=== PATIENT | male | born 1975 | race African-American/Black ===

== ENCOUNTER 2020-03-13 17:00 | Inpatient (IN) ==
[2020-03-13] MEDS ORDERED: NS 1,000 ML IV ONE ×3 (17:09→17:34)
[2020-03-13] MEDS ORDERED: HUMULIN R IV ONE ×3 (17:10→23:39)
--- NOTE | 2020-03-13 17:15 | PROVIDER DOCUMENTATION ---
HPI-General Adult - General Stated Complaint: HIGH BLOOD SUGAR,DIABETIC Time Seen by Provider: 03/13/20 17:09 Source: patient Allergies/Adverse Reactions: Patient Allergies Allergy/AdvReac Type Severity Reaction Status Date / Time No Known Allergies Allergy Verified 08/11/13 06:48 Home Medications: Home Medication List Medication Instructions Recorded Confirmed Last Taken Type Clindamycin [Cleocin] 150 mg PO 4XDAY #40 capsule 08/11/13 Unknown Rx Sulfamethoxazole/Tmp D.s. [Septra 1 each PO BID #20 tablet 08/11/13 Unknown Rx Ds] Progress - PLAN OF CARE/RESULTS Progress/Plan/Lab Results: Orders Category Date Time Status FSBS/Accucheck Result NOW Care 03/13/20 17:10 Ordered CBC WITH ELECTRONIC DIFF [HEME] Stat Lab 03/13/20 17:09 Ordered CMP [COMPREHENSIVE METABOLIC PANEL] [CHEM] Stat Lab 03/13/20 17:09 Uncollected Insulin Human Regular [Humulin R] Med 03/13/20 17:10 Once 15 unit IV NOW ONE Ns 1000 ml IV Bolus X1 Med 03/13/20 17:09 Ordered 0.9% Sodium Chloride Inj [Ns] 1,000 ml IV 999 mls/hr Departure - Departure Referrals and Follow-Ups: Perla Lutz MD [Primary Care Provider] -
--- NOTE | 2020-03-13 17:36 | PROVIDER DOCUMENTATION ---
This chart was entered by Zoe Armando Scribe, acting as scribe for Douglas Lancaster MD. HPI-General Adult - General Chief Complaint: DKA ALERT Stated Complaint: HIGH BLOOD SUGAR,DIABETIC Time Seen by Provider: 03/13/20 17:09 Source: patient Allergies/Adverse Reactions: Patient Allergies Allergy/AdvReac Type Severity Reaction Status Date / Time No Known Allergies Allergy Verified 08/11/13 06:48 Home Medications: Home Medication List Medication Instructions Recorded Confirmed Last Taken Type Clindamycin [Cleocin] 150 mg PO 4XDAY #40 capsule 08/11/13 Unknown Rx Sulfamethoxazole/Tmp D.s. [Septra 1 each PO BID #20 tablet 08/11/13 Unknown Rx Ds] - History of Present Illness -Gen Adult Nature of Presenting Problems: 44yobm presents to Ed by EMS cc elevated blood sugar, increased thirst, increased urination, fatigue for about 4 days. Pt reports he was seen by PCP today for symptoms and advised to come to ED b/c blood sugar was over 1000. He has no prior hx of DM but his mom does. He denies F/cough/recent travel or known exposure to COVID-19. His mucous membranes are VERY dry and he smells of ketones upon exam. Onset/Duration: reports: 4 days ago Timing: reports: still present Context/Activities at Onset: reports: light activity Modifying Factors: improves with: nothing Associated Symptoms: reports: fatigue Similar Symptoms Previously?: Yes Recently seen or treated by another doctor?: Yes (saw PCP today) - Diabetes Related Context Context: reports: high blood sugar Review of Systems - Adult - REVIEW OF SYSTEMS - ADULT Constitutional: reports: see HPIreagan. denies: chills, fever Eyes: reports: no symptoms reported Ears, Nose, Mouth & Throat: reports: no symptoms reported Cardiovascular: reports: no symptoms reported Respiratory: reports: see HPI. denies: cough, shortness of breath Gastrointestinal: reports: no symptoms reported Genitourinary: reports: see HPI, frequency. denies: dysuria, flank pain, h ematuria Musculoskeletal: reports: no symptoms reported Integumentary: reports: no symptoms reported Neurological: reports: no symptoms reported Psychiatric: reports: no symptoms reported Endocrine: reports: see HPI, increased thirst, polyuria Hematologic/Lymphatic: reports: no symptoms reported Allergic/Immunologic: reports: no symptoms reported All Other Systems: Reviewed and Negative Past History - Adult - PAST MEDICAL HISTORY-ADULT Review of Records: reports: Nursing Assessment Review, Medications Reviewed, Social history reviewed & non-contributory. Major Childhood Illnesses: reports: denies history Cardiovascular: reports: denies history Respiratory: reports: denies history Gastrointestinal: reports: denies history Obstetrical/Gynecological: reports: denies history Genitourinary: reports: denies history Musculoskeletal: reports: denies history Neurological: reports: denies history Endocrine/Immune: reports: denies history Other Conditions: reports: denies history - IMMUNIZATION STATUS Childhood Immunizations: See Nurse Assessment Flu Vaccine: See Nurse Assessment - FAMILY HISTORY Family History: reviewed, not pertinent - SOCIAL HISTORY Smoking: denies Physical Exam-General - PHYSICAL EXAM-ADULT Initial Vital Signs Reviewed: Yes - CONSTITUTIONAL General Appearance: alert, no apparent distress. negative: anxious, combative - EYES Eyes: PERRL/EOMI, pink conjunctivae. negative: photophobia - HEAD, EARS, NOSE, MOUTH & THROAT HENMT: normocephalic/atraumatic. negative: moist mucous membranes (very dry with fruity smell), angioedema - NECK Neck: non-tender, full range of motion, supple, normal inspection. negative: C- spine tenderness - RESPIRATORY Respiratory: chest non-tender, lungs clear, normal breath sounds. negative: rhonchi, wheezing - CARDIOVASCULAR Cardiovascular: normal peripheral pulses, regular rate, rhythm. negative: br adycardia, tachycardia - GASTROINTESTINAL (ABDOMEN) Abdominal Exam: normal bowel sounds, non tender, soft. negative: guarding, rebound - LYMPHATIC Lymphatic: no adenopathy. negative: enlargement - MUSCULOSKELETAL Back Exam: normal inspection, no CVA tenderness, no vertebral tenderness Extremity: normal range of motion, non-tender, normal gait, normal inspection, no pedal edema, no calf tenderness, normal capillary refill. negative: deformity, swelling - SKIN Integumentary: normal color, normal turgor, warm/dry. 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 negative: anxious Progress - PLAN OF CARE/RESULTS Progress/Plan/Lab Results: Vital Signs - 8 hr 03/13/20 17:16 Temperature 97.9 F Pulse Rate 93 H Respiratory Rate 23 Blood Pressure 95/55 O2 Sat by Pulse Oximetry 98 Laboratory Results - last 24 hr 03/13/20 17:04 POC Glucose 500 H Orders Category Date Time Status Cardiac Monitoring NOW Care 03/13/20 17:21 Active FSBS/Accucheck Result NOW Care 03/13/20 17:10 Active IV Insertion NOW Care 03/13/20 17:21 Active NEWS Score >or=5:Order NEWS Bundle S.O. NOW Care 03/13/20 17:21 Active Notify Provider of NEWS Score NOW Care 03/13/20 17:21 Active CHEST-1 VIEW [RAD] Stat Exams 03/13/20 17:21 Ordered ABG [RESP] Routine Lab 03/13/20 17:22 Ordered BLOOD CULTURE [BLDCUL] Stat Lab 03/13/20 17:21 Uncollected BLOOD CULTURE [BLDCUL] Stat Lab 03/13/20 17:22 Uncollected CBC WITH ELECTRONIC DIFF [HEME] Stat Lab 03/13/20 17:09 Ordered CK PROFILE [SP CHEM] Stat Lab 03/13/20 17:21 Uncollected CMP [COMPREHENSIVE METABOLIC PANEL] [CHEM] Stat Lab 03/13/20 17:09 Uncollected LACTATE, PLASMA [CHEM] Q3H Lab 03/13/20 17:30 Uncollected LACTATE, PLASMA [CHEM] Q3H Lab 03/13/20 20:30 Uncollected LACTATE, PLASMA [CHEM] Q3H Lab 03/13/20 23:30 Uncollected PROTIME WITH INR [COAG] Stat Lab 03/13/20 17:21 Uncollected PTT [COAG] Stat Lab 03/13/20 17:21 Uncollected TROPONIN T HIGH SENSITIVITY Stat Lab 03/13/20 17:21 Uncollected URINALYSIS W/POSS RFLX CULT [URINALYSIS] Stat Lab 03/13/20 17:21 Uncollected 0.9% Sodium Chloride Inj [Ns] 1,000 ml Med 03/13/20 17:09 Active IV 999 mls/hr Insulin Human Regular [Humulin R] Med 03/13/20 17:21 Discontinued 12 unit IV NOW ONE Insulin Human Regular [Humulin R] Med 03/13/20 17:10 Discontinued 15 unit IV NOW ONE O2 Per Protocol Stat Oth 03/13/20 17:21 Active Result Diagrams: 03/13/20 17:24 04/20/20 17:24 - XRAY 1 XRAY: Bilateral XRAY Study: Chest Impression: See EMR Report (IMPRESSION: No evidence of acute disease. Electronically signed by Praveen Bateman 03/13/2020 5:45 PM) XRAY Interpretation: NAD - CONSULTS/PCP/HOSPITALIST Notification #1 *Consult/PCP/Hospitalist*: Dr. Echeverria Time Discussed: 19:00 Consult Disposition: Admit Departure - Departure Date of Disposition Decision: 03/13/20 Time of Disposition Decision: 19:06 DIAGNOSIS: New onset type 2 diabetes mellitus, BONNY (acute kidney injury) DKA (diabetic ketoacidosis) Qualifiers: Diabetes mellitus type: type 2 Diabetes mellitus complication detail: without coma Qualified Code(s): E11.10 - Type 2 diabetes mellitus with ketoacidosis without coma Disposition: ADMITTED INPATIENT 09 Certified Medical Emergency: Emergent Condition: Stable Referrals and Follow-Ups: Perla Lutz MD [Primary Care Provider] - - Critical Care Note This patient required my direct & personal management of CC.: Yes Total Time (mins): 95 Critical Care Statement: This patient required my direct personal management to treat or rule out processes, the absence of which, could potentiallly result in sudden, clinically significant life or limb threatening deterioration. Attestation - Physician/ VICENTE Attestation Patient care was provided by Advanced Practice Provider:: No The physician spent face to face time with patient:: Yes Advanced Practice Provider documentation review:: Supervising physician onsite and consulted in the evaluation and care of this patient. The physician did have a face to face encounter with the patient. This chart was documented by the indicated scribe, (Zoe Armando Scribe) and accurately reflects the services I performed and decisions made by me, Douglas Lancaster MD, as attested by the provider's signature.
--- NOTE | 2020-03-13 17:48 | Diag Imaging Result Doc PS360 ---
EXAM: CHEST-1 VIEW 03/13/2020 HISTORY: DKA TECHNIQUE: AP portable upright at 0535 COMMENT: There is no evidence of acute cardiac or pulmonary disease. The inspiration is suboptimal. There are no previous studies. IMPRESSION: No evidence of acute disease. Electronically signed by Praveen Bateman 03/13/2020 5:45 PM
[2020-03-13 17:54] LABS: ALLEN TEST YES; BE -15.7 mmoll (-3.0-3.0); BLOOD TYPE ARTERIAL; HCO3-(ACT) 12.6 mmoll (20.0-26.0); METHB 1.6 % (0.0-1.5); O2(CT) 17.7 mL/dL (15.0-23.0); O2HB 95.6 % (95.0-99.0); PCO2(98.6) 24 mmHg (35-45); PO2(98.6) 94 mmHg (60-100); SAMPLE BLOOD; THB 13.1 g/dL (11.5-17.4); pH(98.6) 7.23 (7.35-7.45)
[2020-03-13 18:02] LABS: INR 1.21; PROTIME 15.5 Seconds (11.0-16.0)
[2020-03-13 18:03] LABS: PTT 21.8 Seconds (22.3-41.8)
[2020-03-13 18:26] LABS: AGAP 33; ALB/GLOB RATIO 1.6; ALBUMIN 4.2 g/dL (3.5-5.0); ALKALINE PHOSPHATASE 125 U/L (32-122); BUN 79 mg/dL (8-22); CALCIUM 8.6 mg/dL (8.8-10.2); CHLORIDE 73 mmol/L (98-107); CK PROFILE 182 U/L (24-204); COSMO 323; CREATININE 2.8 mg/dL (0.7-1.2); ESTIMATED GFR 30; GLUCOSE > 1500 mg/dL (70-104); GOT 9 U/L (10-34); GPT 15 U/L (10-44); POTASSIUM 5.7 mmol/L (3.5-5.1); TCO2 12 mmol/L (25-35); TOTAL BILIRUBIN 0.29 mg/dL (0.20-1.00); TOTAL PROTEIN 6.9 g/dL (6.3-8.3)
[2020-03-13 18:27] LABS: SODIUM 117 mmol/L (136-145)
[2020-03-13] MEDS ORDERED: ROCEPHIN 1 GM in NS 50 ML IV ONE (18:45)
[2020-03-13] MEDS ORDERED: SODIUM PHOSPHATE 30 MMOL in D5W 250 ML IV PRN (18:46)
[2020-03-13] MEDS ORDERED: POTASSIUM CHLORIDE 20 MEQ/SWI 20 MEQ/100 ML IVPB IV PRN ×3 (18:46→23:39)
[2020-03-13] MEDS ORDERED: D50W SYRINGE IV PRN ×3 (18:46→23:39)
[2020-03-13] MEDS ORDERED: POTASSIUM CHLORIDE 10% LIQUID PO PRN (18:46)
[2020-03-13] MEDS ORDERED: POTASSIUM CHLORIDE 20% LIQUID PO PRN ×2 (18:46→23:39)
[2020-03-13] MEDS ORDERED: MAGNESIUM SULFATE 2 GM/S.W.I. 2 GM/50 ML IVPB IV PRN (18:46)
[2020-03-13 18:51] LABS: BASO# 0.01 X1000 (0.0-0.2); BASO% 0.1 % (0.0-0.8); HEMATOCRIT 42.2 % (42.0-52.0); HEMOGLOBIN 12.6 g/dL (14.0-18.0); IMM GRAN# 0.02 X1000 (0.0-0.04); IMM GRAN% 0.2 % (0.0-0.5); LYMPH# 0.69 X1000 (1.2-3.4); MCH 26.9 PG (27-31); MCHC 29.9 g/dL (33-37); MONO# 0.34 X1000 (0.11-0.59); MONO% 3.4 % (1.7-9.3); NEUT# 8.83 X1000 (1.4-6.5); NEUT% 89.3 % (42.2-75.2); PLT 160 X1000 (130-400); RBC 4.69 XMIL (4.7-6.1); RDW 14.3 % (11.5-14.5); WBC 9.89 X1000 (4.8-10.8)
[2020-03-13 18:58] LABS: URINE SOURCE CLEAN CATCH
[2020-03-13] MEDS ORDERED: HUMULIN R 100 UNIT in NS 100 ML IV SCH (19:00)
[2020-03-13 19:18] LABS: BILIRUBIN URINE NEGATIVE (NEGATIVE); BLOOD URINE NEGATIVE (NEGATIVE); COLOR STRAW; GLUCOSE URINE >1000 mg/dL (NEGATIVE); KETONE URINE 20 mg/dL (NEGATIVE); LEUKOCYTES URINE NEGATIVE (NEGATIVE); NITRITE URINE NEGATIVE (NEGATIVE); PH URINE 5.5; PROTEIN URINE NEGATIVE (NEGATIVE); SP GRAVITY URINE 1.025; TURBIDITY URINE CLEAR (CLEAR); UROBILINOGEN URINE NORMAL (NORMAL)
[2020-03-13 19:19] LABS: UR EPITHELIAL CELLS <10 /HPF (<10); URINE BACTERIA NEGATIVE /HPF; URINE RBC <10 /HPF (<10); URINE WBC <10 /HPF (<10)
[2020-03-13 19:57] LABS: UR AMPHETAMINES QUAL NONE DETECTED (NONE DETECT); UR BARBITUATES QUAL NONE DETECTED (NONE DETECT); UR BENZODIAZEPIN QUAL NONE DETECTED (NONE DETECT); UR CANNABINOIDS QUAL NONE DETECTED (NONE DETECT); UR COCAINE QUAL NONE DETECTED (NONE DETECT); UR METHADONE QUAL NONE DETECTED (NONE DETECT); UR OPIATES QUAL NONE DETECTED (NONE DETECT); UR OXYCODONE QUAL NONE DETECTED (NONE DETECT); UR PCP QUAL NONE DETECTED (NONE DETECT)
[2020-03-13 21:03] LABS: MAGNESIUM 4.5 mg/dL (1.5-2.7); PHOSPHORUS 6.8 mg/dL (2.7-4.5); POTASSIUM 5.3 mmol/L (3.5-5.1)
[2020-03-13 21:04] LABS: ACETONE SERUM MODERATE (NEGATIVE)
[2020-03-13 21:05] LABS: CK PROFILE 212 U/L (24-204)
[2020-03-13 21:19] LABS: CK INDEX 1.2 (0.0-2.5); CK-MB 2.56 ng/mL (0.0-5.0)
--- NOTE | 2020-03-13 21:56 | HISTORY AND PHYSICAL ---
PRIMARY CARE PHYSICIAN: Dr. Pantoja. CHIEF COMPLAINT: Nausea, vomiting for 2 days. HISTORY OF PRESENTING ILLNESS: A 44-year-old male with a history of hypertension who presented to emergency department with 2 days history of having persistent nausea, vomiting. The patient states that he was not able to keep anything down and his symptoms were worsening. The patient subsequently had come to the emergency department and at the ED, he was evaluated. He had laboratories drawn which did show he had markedly elevated blood glucose greater than 1500. He was also acidotic and symptoms were consistent with DKA. Subsequently, he will require admission for further management. During his initial treatment, he was started on insulin drip and he will require admission to [facility] for further treatment. At the time of my examination, he had denied any headache, fever, chills, chest pain, shortness of breath or weight changes, but complained of nausea, vomiting and not feeling well. PAST MEDICAL HISTORY: Includes hypertension. PAST SURGICAL HISTORY: None. ALLERGIES: No known drug allergies. CURRENT MEDICATIONS: Amlodipine 10 mg p.o. daily, clonidine 0.1 mg p.o. nightly, metoprolol 100 mg p.o. daily. SOCIAL HISTORY: He is a former smoker. No history of alcohol or illicit drug use. FAMILY HISTORY: No history of coronary disease. REVIEW OF SYSTEMS: Fourteen point review of systems is as in HPI. Other systems negative. PHYSICAL EXAMINATION: GENERAL: Cooperative, friendly male. He is resting more comfortably now. VITAL SIGNS: Temperature 97.9 degrees, pulse 93, respirations 23, blood pressure 95/55. HEENT: Atraumatic, normocephalic. Extraocular movements intact. PERRLA. NECK: No masses. CHEST: Clear to auscultation. CARDIOVASCULAR: Regular rate and rhythm. ABDOMEN: Soft. Positive bowel sounds. EXTREMITIES: No edema. NEUROLOGIC: He is awake, alert, oriented x3. : No bladder distention. SKIN: Has a poor turgor. LABORATORIES AND STUDIES: WBC 9.89, hemoglobin 12.6, hematocrit 42.2, platelets 160,000, pH is 7.23. Sodium 117, potassium 5.7, chloride 73, CO2 is 12, BUN 79, creatinine is 2.8, glucose is greater than 1500. Has moderate acetone noted. ASSESSMENT: This is a 44-year-old male with a history of hypertension, had presented to emergency department with several days history of having worsening nausea, vomiting. He was seen in the emergency department and laboratories drawn which were consistent with diabetic ketoacidosis. Subsequently, he will require admission for further management. 1. Diabetic ketoacidosis. 2. Acute kidney injury. 3. Electrolyte abnormalities. 4. Hypertension. PLAN: 1. We will admit patient to [facility]. 2. Continue patient on insulin drip per DKA protocol. 3. Continue with IV fluids and monitor renal function. 4. We will correct his electrolytes. 5. Monitor blood pressure closely. Resume antihypertensive agent. 6. We will put patient on DVT prophylaxis with SCD. 7. We will continue to follow and reassess, make further recommendation based on patient's clinical course. cc: Elias Echeverria MD
[2020-03-13] MEDS ORDERED: POTASSIUM CHLORIDE 40 MEQ/SWI 40 MEQ/100 ML IVPB IV PRN (23:39)
[2020-03-13] MEDS ORDERED: D5 NS 1,000 ML IV PRN (23:39)
[2020-03-13] MEDS ORDERED: ZOFRAN IV PRN (23:39)
[2020-03-14] MEDS: NS 1,000 ML IV SCH ×2 (00:22→08:01)
[2020-03-14 00:26] LABS: HEMATOCRIT 36.6 % (42.0-52.0); HEMOGLOBIN 12.8 g/dL (14.0-18.0); MCH 27.3 PG (27-31); PLT 159 X1000 (130-400); RBC 4.69 XMIL (4.7-6.1); RDW 12.9 % (11.5-14.5); WBC 10.17 X1000 (4.8-10.8)
[2020-03-14] MEDS: HUMULIN R 100 UNIT in NS 100 ML IV SCH ×2 (00:37→04:23)
[2020-03-14 00:41] LABS: MAGNESIUM 4.1 mg/dL (1.5-2.7); PHOSPHORUS 3.3 mg/dL (2.7-4.5)
[2020-03-14 01:11] LABS: CALCIUM 8.8 mg/dL (8.8-10.2); CREATININE 2.2 mg/dL (0.7-1.2); POTASSIUM 3.9 mmol/L (3.5-5.1)
[2020-03-14] MEDS: POTASSIUM CHLORIDE 10% LIQUID PO PRN ×2 (02:34→05:41)
[2020-03-14 04:49] LABS: CALCIUM 9.1 mg/dL (8.8-10.2); MAGNESIUM 4.1 mg/dL (1.5-2.7); PHOSPHORUS 2.5 mg/dL (2.7-4.5); POTASSIUM 3.8 mmol/L (3.5-5.1)
[2020-03-14 09:41] LABS: CREATININE 1.8 mg/dL (0.7-1.2); PHOSPHORUS 3.3 mg/dL (2.7-4.5)
[2020-03-14] MEDS ORDERED: D5 1/2 NS 1,000 ML IV SCH (11:00)
[2020-03-14] MEDS ORDERED: HUMULIN R 100 UNIT in NS 100 ML IV SCH (12:23)
--- NOTE | 2020-03-14 12:40 | PROGRESS NOTE ---
DATE: 03/14/2020 SUBJECTIVE: The patient has no major complaints. He feels better. OBJECTIVE: Blood pressure 117/57, heart rate of 80, respiratory rate of 16, temperature 98.1 degrees, 99% on room air. Cardiovascular: Regular rate and rhythm. Pulmonary: Bilateral breath sounds diminished in the bases. GI: Soft, nontender, nondistended. Bowel sounds were positive. Sodium is 158, bicarb is 24, BUN and creatinine of 56 and 1.8, glucose is down to 139. ASSESSMENT AND PLAN: 1. Diabetic ketoacidosis with new onset diabetes. We will switch him to Lantus now that his acidosis is essentially closed. I will switch him to Lantus weight based, is recommending 50 units a day. We will continue to monitor. Educate on subcutaneous injections and checking his blood sugars. 2. Acute kidney injury. This appears to be resolving with fluids. He is hypernatremic so we will give him hypotonic fluids and follow. Creatinine is 1.8, sodium is 158, glucose 139. DISPOSITION: Hopefully home in the next 24 hours if stable. We will continue to monitor his blood sugars closely. cc: Jimmy Welch MD
[2020-03-14] MEDS: LANTUS INSULIN SUBQ SCH (13:17)
[2020-03-14] MEDS: 1/2 NS 1,000 ML IV SCH (13:18)
[2020-03-14] MEDS: HUMALOG SUBQ SCH ×2 (16:08→20:49)
[2020-03-14 17:26] LABS: POTASSIUM 4.8 mmol/L (3.5-5.1)
[2020-03-14 17:28] LABS: CALCIUM 8.9 mg/dL (8.8-10.2); CREATININE 1.7 mg/dL (0.7-1.2)
[2020-03-14] MEDS ORDERED: HUMULIN R IV ONE (18:28)
[2020-03-14 20:25] LABS: CALCIUM 8.9 mg/dL (8.8-10.2); CREATININE 1.6 mg/dL (0.7-1.2)
[2020-03-15 05:49] LABS: BASO# 0.01 X1000 (0.0-0.2); BASO% 0.1 % (0.0-0.8); EOS# 0.03 X1000 (0.0-0.7); EOS% 0.3 % (0.0-10.0); HEMATOCRIT 35.8 % (42.0-52.0); HEMOGLOBIN 11.9 g/dL (14.0-18.0); IMM GRAN# 0.02 X1000 (0.0-0.04); IMM GRAN% 0.2 % (0.0-0.5); LYMPH# 1.55 X1000 (1.2-3.4); LYMPH% 17.7 % (20.5-51.1); MCH 27.2 PG (27-31); MCHC 33.2 g/dL (33-37); MCV 81.7 FL (81-99); MONO# 0.47 X1000 (0.11-0.59); MONO% 5.4 % (1.7-9.3); MPV 13.6 FL (7.4-10.4); NEUT# 6.69 X1000 (1.4-6.5); NEUT% 76.3 % (42.2-75.2); PLT 118 X1000 (130-400); RBC 4.38 XMIL (4.7-6.1); RDW 13.8 % (11.5-14.5); WBC 8.77 X1000 (4.8-10.8)
[2020-03-15 06:09] LABS: AGAP 17; BUN 32 mg/dL (8-22); CALCIUM 8.7 mg/dL (8.8-10.2); CHLORIDE 110 mmol/L (98-107); COSMO 313; CREATININE 1.5 mg/dL (0.7-1.2); ESTIMATED GFR > 60; GLUCOSE 348 mg/dL (70-104); POTASSIUM 4.1 mmol/L (3.5-5.1); SODIUM 147 mmol/L (136-145); TCO2 20 mmol/L (25-35)
[2020-03-15] MEDS: HUMALOG SUBQ SCH ×4 (06:42→20:42)
[2020-03-15] MEDS: LANTUS INSULIN SUBQ SCH (08:17)
[2020-03-15] MEDS: 1/2 NS 1,000 ML IV SCH ×3 (12:24→20:43)
[2020-03-15] MEDS ORDERED: LANTUS INSULIN SUBQ ONE (13:35)
[2020-03-15] MEDS ORDERED: CATAPRES PO SCH (22:43)
[2020-03-16] MEDS: HUMALOG SUBQ SCH ×3 (06:31→16:44)
[2020-03-16 08:10] LABS: EOS# 0.05 X1000 (0.0-0.7); HEMATOCRIT 34.1 % (42.0-52.0); HEMOGLOBIN 11.3 g/dL (14.0-18.0); LYMPH# 1.43 X1000 (1.2-3.4); LYMPH% 29.7 % (20.5-51.1); MCH 27.2 PG (27-31); MCHC 33.1 g/dL (33-37); MONO# 0.26 X1000 (0.11-0.59); MONO% 5.4 % (1.7-9.3); MPV 13.3 FL (7.4-10.4); NEUT# 3.07 X1000 (1.4-6.5); NEUT% 63.9 % (42.2-75.2); PLT 95 X1000 (130-400); RBC 4.16 XMIL (4.7-6.1); RDW 12.9 % (11.5-14.5); WBC 4.81 X1000 (4.8-10.8)
[2020-03-16 08:24] LABS: AGAP 15; BUN 20 mg/dL (8-22); CALCIUM 8.9 mg/dL (8.8-10.2); CHLORIDE 103 mmol/L (98-107); COSMO 292; ESTIMATED GFR > 60; GLUCOSE 281 mg/dL (70-104); POTASSIUM 3.7 mmol/L (3.5-5.1); SODIUM 140 mmol/L (136-145); TCO2 22 mmol/L (25-35)
[2020-03-16] MEDS: 1/2 NS 1,000 ML IV SCH (08:35)
[2020-03-16] MEDS ORDERED: NORVASC PO SCH (09:00)
[2020-03-16] MEDS ORDERED: LANTUS INSULIN SUBQ SCH (09:00)
[2020-03-16] MEDS ORDERED: TOPROL XL PO SCH (09:00)
[2020-03-16] MEDS ORDERED: GLUCOPHAGE PO ONE (15:14)
[2020-03-16 16:08] VITALS: BP 134/83
--- NOTE | 2020-03-16 20:12 | DISCHARGE SUMMARY ---
ADMISSION DATE: 03/13/2020 DISCHARGE DATE: 03/16/2020 DISCHARGE DIAGNOSES: 1. New-onset diabetes. 2. Diabetic ketoacidosis although in the setting of a type 2 diabetic. 3. Acute kidney injury, resolved with hydration. Likely due to prerenal azotemia. CONSULTATIONS: Negative. HOSPITAL COURSE: A 44-year-old gentleman with hypertension and DKA. Glucose is 823, creatinine is 2.2, BUN is 69. After hydration he improved. It went down to 1.6, 1.5, and 1.0. His hemoglobin and hematocrit dropped a little bit. We had to end up using Lantus and Humalog because of his kidney function number 1 and then because his blood sugars just were not controlled even on insulin. His sugars are still in the 200 range intermittently. They did drop into the 100s I think when he was not on insulin. Discharge condition is stable. Blood pressure was stable. Several new medication changes. Amlodipine 10 was old. Metoprolol 100 daily is old. He was given glucose meter and alcohol lancets, but I added losartan 25 since he is a diabetic. Metformin 850 b.i.d. since his creatinine went down to 1. He will be on 12 units t.i.d. of lispro and 40 units daily of glargine. I anticipate he is probably going to need further adjustments of his blood sugars. He sees Dr. Kennedy Pantoja at [facility]. I encouraged him to follow up next week. He has been set up for outpatient diabetes teaching. He has had dietitian evaluation while he has been here. He has had education on sub-Q injections and testing his blood sugars. He was given parameters for blood sugars low and high. He was told to check his blood sugar at least 3 times a day before breakfast, before lunch, before dinner, and ideally at night as well. TOTAL TIME SPENT: This was a 35-minute discharge. cc: MD Kennedy Holm MD
== END 2020-03-16 17:25 | disposition home or self-care (01) | DRG 638 ==
LOC: ED 17:00 → 2N 17:01 → SUATTDRO 17:01 → 3N 03-15 21:39
PROVIDERS: ATTEND Internal Medicine